=== PATIENT | female | born 1945 | race Caucasian/White ===

== ENCOUNTER → 2017-09-20 | Outpatient (CLI) | payer MEDICARE ==
[~2017-09-20] MED LIST: ACIDTAB4 OR; ASPI81 PO; BETH25TA3 PO; CALC950T PO; CELE200 PO; CLON.5 PO; DEMA10TA PO; DICY1TAB26 PO; FEXO60TA PO; FISH1000 PO; FLON0.053; LEVO.125 PO; MELA3TAB23 OR; METH750T2 PO; POTA595T2 PO; PREV30CA36 PO; RANI300T PO; SYMB80AE INH; SYSTANE ULTRA; VITA100017 PO; VITA20003 OR; [UNRECOGNIZED DRUG - CODE]; [UNRECOGNIZED DRUG - OTHER]
[2017-09-20 10:43] LABS: AUTOMATED NEUTROPHIL # 4.1 TH/MM3 (1.8-7.7); BASOPHIL % 0.6 % (0.0-2.0); EOSINOPHIL # 0.4 TH/MM3 (0-0.4); EOSINOPHIL % 6.8 % (0.0-4.0); HEMATOCRIT 40.7 % (35.0-46.0); HEMOGLOBIN 13.9 GM/DL (11.6-15.3); LYMPH % 21.4 % (9.0-44.0); LYMPHOCYTE # 1.4 TH/MM3 (1.0-4.8); MEAN CELL VOLUME 85.9 FL (80.0-100.0); MEAN CORPUSCULAR HEMOGLOBIN 29.4 PG (27.0-34.0); MEAN CORPUSCULAR HGB CONC 34.2 % (32.0-36.0); MEAN PLATELET VOLUME 9.2 FL (7.0-11.0); MONO % 7.1 % (0.0-8.0); MONOCYTE # 0.5 TH/MM3 (0-0.9); NEUT % 64.1 % (16.0-70.0); PLATELET COUNT 211 TH/MM3 (150-450); RED BLOOD COUNT 4.74 MIL/MM3 (4.00-5.30); RED CELL DISTRIBUTION WIDTH 13.8 % (11.6-17.2); WHITE BLOOD COUNT 6.4 TH/MM3 (4.0-11.0)
--- NOTE | 2017-09-20 16:47 | EKG ---
Date Performed: 09/20/2017 Time Performed: 09:57:20 PTAGE: 71 years EKG: Sinus rhythm . Extensive ST changes are nonspecific Borderline ECG PREVIOUS TRACING : 03/17/2008 17.34 Since the previous tracing, no significant change noted DOCTOR: Tianna Mullins Interpretating Date/Time 09/20/2017 16:45:06
== END ==
LOC: HCAV 09:50
PROVIDERS: ATTEND Ophthalmology
DX: I10 Essential (primary) hypertension (principal)
CPT/HCPCS: 36415; 85025; 93005

== ENCOUNTER → 2017-10-11 | Day surgery (SDC) | payer MEDICARE ==
[~2017-10-11] VITALS: Ht 157.5 cm; Wt 82.0 kg
[~2017-10-11] MED LIST changes: -ACIDTAB4 OR; +ASCO100029 PO; +ASPI1TAB57 PO; -ASPI81 PO; +BETH25TA2 PO; -BETH25TA3 PO; +BUTA1CAP PO; +BUTA1CAP10 PO; +CALC250T PO; -CALC950T PO; +CELE1CAP8 PO; -CELE200 PO; +CHLORHEXIDINE GLUCONATE 2 % 1 PACK (2 CLOTHS) TOPICAL PRN; +CHOL1TAB35 PO; -CLON.5 PO; +CLON0.5T PO; +CYCLOPENTOLATE HCL 1% OPHT SOLN 2 ML BTL ONE; -DEMA10TA PO; +DICY10 PO; -DICY1TAB26 PO; +EPINEPHrine HCL PF/SF (1:1000) 1 MG/ML AMP I-OCULAR ONE; -FEXO60TA PO; +FEXO60TA36 PO; -FLON0.053; +FLUT1SPR5; +LACT1CAP30 PO; +LACTATED RINGER'S 1000 ML IV PRN; +LANS30CA PO; +LEVO-168 PO; -LEVO.125 PO; -MELA3TAB23 OR; +MELA3TAB52 PO; +METH750T PO; -METH750T2 PO; +METOPROLOL TARTRATE 25 MG TAB PO PRN; +MIRA3350 PO; +MONT10TA4 PO; +PHENYLEPHRINE HCL 10% OPTH SOLN 5 ML BTL ONE; +POTA595T PO; -POTA595T2 PO; +POVIDONE IODINE 5% (ANTISEPSIS KIT) 4 APPLICATIONS EACH NARE PRN; -PREV30CA36 PO; +SODIUM CHLORID 0.9% 500 ML IV PRN; -SYSTANE ULTRA; +TETRACAINE 0.5% OPTH SOLN 4 ML BTL ONE; +TOBRAMYCIN/DEXAMETHASONE OPTH OINT 3.5 GM TUBE ONE; +TORS10TA2 PO; +TROPICAMIDE 1% OPHT SOLN 15 ML BTL ONE; +VENTAER INH; +VISCOAT OPHT IRRIG SOLN 0.75 ML SYRINGE ONE; -VITA100017 PO; -VITA20003 OR; -[UNRECOGNIZED DRUG - CODE]; -[UNRECOGNIZED DRUG - OTHER]
[2017-10-11] MEDS: TETRACAINE 0.5% OPTH SOLN 4 ML BTL RIGHT EYE SCH ×3 (07:04→07:14)
[2017-10-11] MEDS: CYCLOPENTOLATE HCL 1% OPHT SOLN 2 ML BTL RIGHT EYE SCH ×3 (07:04→07:14)
[2017-10-11] MEDS: PHENYLEPHRINE HCL 10% OPTH SOLN 5 ML BTL RIGHT EYE SCH ×3 (07:04→07:14)
[2017-10-11] MEDS: TROPICAMIDE 1% OPHT SOLN 15 ML BTL RIGHT EYE SCH ×3 (07:04→07:14)
--- NOTE | 2017-10-11 08:50 | PD.OP ---
Operative Report Date of Surgery: Oct 11, 2017 Preoperative Diagnosis: (1) Nuclear sclerotic cataract of right eye Postoperative Diagnosis: (1) Pseudophakia of right eye Procedure: phacoemulsification and intraocular lens implant right eye Anesthesia: General Surgeon: Wilma Jacobo Threshing Department Supervisor(s): none Operation and Findings: Patient was consented for surgery and taken back to the operating room. She was put under general anesthesia and prepped and draped in the usual sterile fashion for ophthalmic surgery. A wire lid speculum was placed in the right eye. A paracentesis incision was created at the 11 o'clock position on the limbus. Vision blue dye and viscoelastic was injected into the anterior chamber. The main incision was created at the 8 o'clock position on the limbus with a 2.4 mm keratome. A continuous curvilinear capsulorrhexis was made on the anterior lens capsule. Hydrodissection was used to separate the lens from the capsule. Phacoemulsification was used to remove the lens nucleus material. Irrigation and aspiration was used to remove the remaining cortical material. The lens implant ([id number]) was placed in the capsular bag. Viscoelastic was removed with irrigation and aspiration. The incisions were irrigated and found to be watertight. Tobradex ointment, a patch, and shield were placed on the right eye. The patient was sent to PACU in stable condition. Wilma Jacobo MD Oct 11, 2017 08:50
[2017-10-11 10:19] VITALS: BP 119/73; PULSE 74; RESP 16; TEMP 98.1; O2SAT 96
== END | disposition home or self-care (01) ==
LOC: PHSDC 06:32
PROVIDERS: ATTEND Ophthalmology
DX: H25.11 Age-related nuclear cataract, right eye (principal)
CPT/HCPCS: 00142; 66984; J0171; J7040; V2632